=== PATIENT | female | born 1955 ===

== ENCOUNTER 2023-01-31 11:55 | Emergency (ER) | payer OTHER, MEDICARE, SELFPAY ==
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
[2023-01-31 12:12] VITALS: BP 154/94; BP 178/108; PULSE 125; PULSE 88; RESP 17; TEMP 36.9; O2SAT 94; O2SAT 97; BMI 31.9
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
[2023-01-31 12:52] VITALS: BP 153/75
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
[2023-01-31] MEDS: Acetaminophen 325 MG TABLET 975 MG PO (13:04)
[2023-01-31 15:01] VITALS: BP 146/67; PULSE 75; RESP 18; TEMP 36.8; O2SAT 97
[2023-01-31] MEDS: Bacitracin Oint 0.9 GM PACKET 1 APPL TOPICAL (15:16)
== END 2023-01-31 15:23 | disposition home or self-care (01) ==
PROVIDERS: Emergency Provider Student in an Organized Health Care Education/Training Program
DX: S50.12XA Contusion of left forearm, initial encounter (principal); S50.812A Abrasion of left forearm, initial encounter; S50.811A Abrasion of right forearm, initial encounter; V43.53XA Car driver injured in collision with pick-up truck in traffic accident, initial encounter; W22.11XA Striking against or struck by driver side automobile airbag, initial encounter; Y93.89 Activity, other specified; Y92.414 Local residential or business street as the place of occurrence of the external cause; Y99.9 Unspecified external cause status
CPT/HCPCS: 70450; 71046; 72125; 73090; 99284